=== PATIENT | male | born 1985 | race African-American/Black ===

== ENCOUNTER 2024-06-09 14:15 | Emergency (ER) | payer OTHER ==
[~2024-06-09] VITALS: Ht 170.1 cm; Wt 63.5 kg
[2024-06-09] MEDS ORDERED: VIBRAMYCIN100 MG PO (14:35)
[2024-06-09 14:50] LABS: BILIRUBIN Negative (Negative); BLOOD Negative (Negative); CLARITY Turbid (Clear); COLOR Yellow (Yellow); GLUCOSE Negative (Negative); KETONE Negative (Negative); LEUKO ESTERASE 1+ (Negative); NITRITE Negative (Negative); UROBILINOGEN 0.2 E.U./dl (0.0-1.0)
[2024-06-09 15:07] LABS: BACTERIA 1+; WBC 21-30 wbc/hpf (0-5)
[2024-06-09] MEDS ORDERED: Water, Sterile 10 ML VIAL ONE (15:10)
== END 2024-06-09 15:14 | disposition home or self-care (01) ==
LOC: ED 14:15
PROVIDERS: Physician Assistant Medical
DX: Z20.2 Contact with and (suspected) exposure to infections with a predominantly sexual mode of transmission (principal); R30.0 Dysuria; R36.9 Urethral discharge, unspecified